=== PATIENT | male | born 1950 | race Caucasian/White ===

== ENCOUNTER 2016-09-24 15:53 | Emergency (ER) | payer MEDICARE ==
[~2016-09-24] VITALS: Ht 172.7 cm; Wt 75.0 kg
[~2016-09-24 15:53] MED LIST: CEPHALEXIN500 M1 PO; FISH OIL 1000MG1 CAP PO; GLUCOPHAGE500 MG/TAB PO; HCTZ 25MG TAB25 MG PO; MAGNESIUM250 M1 PO; NIACIN 100100 MG/TAB; NIACIN500 M4 PO; PRIL40; PRIL40 PO; THE MEDICINE S300 M1 PO; TOPROL XL 25MG25 MG; TOPROL XL 25MG25 MG PO; VITAMIN B-1000 MCG/T PO
[2016-09-24 15:55] VITALS: BP 134/72; PULSE 84; TEMP 97.9
[2016-09-24] MEDS ORDERED: NATURE'S BLEND400 IU PO (15:59)
== END 2016-09-24 16:34 | disposition home or self-care (01) ==
LOC: COL.ER 15:53
DX: S46.912A Strain of unspecified muscle, fascia and tendon at shoulder and upper arm level, left arm, initial encounter (principal); X50.0XXA Overexertion from strenuous movement or load, initial encounter; Y92.89 Other specified places as the place of occurrence of the external cause; I10 Essential (primary) hypertension; Z95.0 Presence of cardiac pacemaker; M65.812 Other synovitis and tenosynovitis, left shoulder; E11.9 Type 2 diabetes mellitus without complications; Z79.84 Long term (current) use of oral hypoglycemic drugs

== ENCOUNTER 2016-11-25 08:00 | Outpatient (RCR) | payer OTHER ==
[~2016-11-25 08:00] MED LIST changes: +NATURE'S BLEND400 IU PO
== END 2017-01-10 ==
LOC: WSOH
DX: M25.512 Pain in left shoulder (principal); X50.1XXA Overexertion from prolonged static or awkward postures, initial encounter; Y99.0 Civilian activity done for income or pay

== ENCOUNTER → 2019-01-18 | Outpatient (CLI) | payer BC | LOC: COL.RAD 15:22 | DX: N20.0 Calculus of kidney (principal); K57.30 Diverticulosis of large intestine without perforation or abscess without bleeding | CPT/HCPCS: Q9967 ==

== ENCOUNTER 2020-12-11 14:46 | Emergency (ER) | payer BC, MEDICARE ==
[~2020-12-11] VITALS: Ht 170.2 cm; Wt 70.5 kg
[2020-12-11 14:54] VITALS: TEMP 98
[2020-12-11 16:30] LABS: COLLECTION METHOD CLEAN CATCH
[2020-12-11 16:45] LABS: BASO % 0.4 % (0.0-2.0); EOS # 0.1 (0.0-0.7); EOS % 1.8 % (0-4.0); GRAN # 4.6 (1.4-6.5); GRAN % 64.1 % (42.2-75.2); HEMATOCRIT 42.3 % (42.0-52.0); HEMOGLOBIN 14.6 g/dl (13.5-18.0); MEAN CELL VOLUME 90 fl (80.0-100.0); MEAN CORPUSCULAR HEMOGLOBIN 31 pg (27.0-31.0); MEAN CORPUSCULAR HGB CONC 35 g/dl (33.0-37.0); MEAN PLATELET VOLUME 10.7 fl (7.4-10.4); MONO # 0.5 (0.1-0.6); MONO % 6.4 % (1.7-9.3); PLATELET COUNT 214 K/mm3 (130-400); REDCELL DISTRIBUTION WIDTH-CV 13.6 % (11.5-14.5)
[2020-12-11 16:48] LABS: ALANINE AMINOTRANSFERASE 39 U/L (4-49); ALKALINE PHOSPHATASE 96 U/L (50-136); ANION GAP 13 mmol/L (7-16); AST,SGOT 45 U/L (15-37); BILIRUBIN,TOTAL 0.7 mg/dL (0.0-1.0); BLOOD UREA NITROGEN 64 mg/dL (9-20); CALCIUM 10.3 mg/dL (8.4-10.2); CARBON DIOXIDE 22 mmol/L (22-30); CHLORIDE 104 mmol/L (98-107); CREATININE, serum 3.13 (0.66-1.25); GLUCOSE 106 mg/dL (74-106); POTASSIUM 4.2 mmol/L (3.4-5.0); SODIUM 139 mmol/L (137-145); TOTAL PROTEIN 8.7 gm/dL (6.4-8.2)
[2020-12-11 16:54] LABS: PH 5 (5-8); SQUAMOUS EPITHELIAL 0-2 /hpf; URINE APPEARANCE Hazy; URINE BACTERIA None Seen /hpf; URINE BILIRUBIN Negative (NEGATIVE); URINE BLOOD Negative (NEGATIVE); URINE COLOR Yellow; URINE GLUCOSE Negative (NEGATIVE); URINE KETONE Negative (NEGATIVE); URINE LEUKOCYTE ESTERASE Negative (NEGATIVE); URINE NITRATE Negative (NEGATIVE); URINE PROTEIN(semi-quant) Negative (NEGATIVE); URINE RBC 0-2 /hpf; URINE UROBILINOGEN Negative (NEGATIVE)
[2020-12-11 17:17] LABS: TROPONIN-I < 0.012 ng/mL (0.000-0.035)
[2020-12-11 17:39] LABS: CREATINE KINASE 211 U/L (55-170)
[2020-12-11 18:45] VITALS: BP 123/79; PULSE 82
== END 2020-12-11 18:45 | disposition home or self-care (01) ==
LOC: COL.ER 14:46
PROVIDERS: Emergency Medicine
DX: N17.9 Acute kidney failure, unspecified (principal); E11.9 Type 2 diabetes mellitus without complications; I10 Essential (primary) hypertension; Z95.0 Presence of cardiac pacemaker; Z79.899 Other long term (current) drug therapy; Z79.84 Long term (current) use of oral hypoglycemic drugs
CPT/HCPCS: J7120